=== PATIENT | female | born 1960 | race Two or more races ===

== ENCOUNTER → 2024-02-06 | Outpatient (CLI) | payer MEDICARE ==
[2024-02-06 17:36] LABS: African American GFR (CKD) >90 (>60 ml/min/1.73 sqM); Blood Urea Nitrogen 10 mg/dL (7-17); Non-African American GFR(CKD) 81 (>60 ml/min/1.73 sqM)
--- NOTE | 2024-02-06 19:26 | CT ---
EXAMINATION TYPE: CT abdomen pelvis w con DATE OF EXAM: 02/06/2024 COMPARISON: NONE HISTORY: 63-year-old female R1 0.31 RLQ PAIN TECHNIQUE: Contiguous axial scanning of the abdomen and pelvis following administration of 100 ml Iso nelly 300 IV contrast. Delayed images through the kidneys and coronal/sagittal reconstructions perform ed. CT DLP: 707.3 mGycm Automated exposure control for dose reduction was used. FINDINGS: The heart is borderline enlarged without pericardial effusion. Dependent atelectasis posterior lung b ases without pleural effusion. Liver borderline enlarged at 17.3 cm. No focal liver lesion. Portal venous system is patent. No bilia ry ductal dilatation. No abnormal gallbladder distention. Adrenal glands, right kidney, spleen, and pancreas within normal limits. Small 1 cm cortical cyst lateral left kidney. Symmetric uptake and excretion of contrast from both ki dneys. No dilated small bowel, free fluid, or free air. No mesenteric or retroperitoneal lymphadenopathy. Oral contrast progressed into the cecum. There is moderate stool in the ascending, transverse and joseph cending colon. Redundant sigmoid colon reaching to the mid abdomen, distended up to 3.9 cm. Side-by-s marium narrowing of both the proximal and distal sigmoid limbs, refer to coronal image 46, axial image 6 1, and sagittal image 49. No pericolonic inflammatory change. Normal appendix. Bladder is partially distended. Left-sided pelvic phlebolith. Uterus surgically absent. Neither ovary clearly seen. No abnormal fluid collection in the pelvis or pelvic lymphadenopathy. Patient status post L4-S1 posterior and anterior fusion with fixed grade 1 anterolisthesis L5-S1. Hyp ertrophic facet arthropathy. IMPRESSION: 1. NORMAL APPENDIX. 2. REDUNDANT SIGMOID COLON EXTENDING INTO THE MID ABDOMEN. There is narrowing of the mid sigmoid and distal sigmoid limbs but no evident twisting of the mesentery here to suggest an early volvulus. Con inspector toys short interval radiographic follow-up if symptoms persist. 3. Otherwise, no acute inflammatory process identified to explain patient's symptoms.
== END | disposition home or self-care (01) ==
LOC: RADCTMAIN 17:03
PROVIDERS: ATTEND Family Medicine
DX: Q43.8 Other specified congenital malformations of intestine (principal)
CPT/HCPCS: 82565; 84520; 74177; 36415; Q9967